=== PATIENT | male | born 1955 | race Caucasian/White ===

== ENCOUNTER → 2023-08-28 | Emergency (ER) | payer OTHER ==
--- NOTE | 2023-08-28 09:11 | ER ---
Nurse's Notes [facility] Name: Vamshi Cobian Age: 68 yrs Sex: Male : 1955 Arrival Date: 08/28/2023 Time: 08:58 Bed IW1 Private MD: Diagnosis: Ganglion, left wrist Presentation: 08/28 09:05 Chief complaint: Lump on inner wrist and tingling sensation in left inner wrist that hb radiates to forearm x 2 weeks. Coronavirus screen: At this time, the client does not indicate any symptoms associated with coronavirus-19. Ebola Screen: No symptoms or risks identified at this time. Initial Sepsis Screen: Does the patient meet any 2 criteria? No. Patient's initial sepsis screen is negative. Does the patient have a suspected source of infection? No. Patient's initial sepsis screen is negative. Risk Assessment: Do you want to hurt yourself or someone else? Patient reports no desire to harm self or others. Onset of symptoms was August 14, 2023. 09:05 Method Of Arrival: Ambulatory hb 09:05 Acuity: MIAH 4 hb Triage Assessment: 09:06 General: Appears in no apparent distress. Behavior is calm, cooperative. Pain: Denies hb pain. Neuro: Level of Consciousness is awake, alert, obeys commands, Oriented to person, place, time, situation. Cardiovascular: Patient's skin is warm and dry. Respiratory: Respiratory effort is even, unlabored, Respiratory pattern is regular, symmetrical. Historical: - Allergies: 09:06 No Known Allergies; hb - Home Meds: 09:06 None [Active]; hb - PMHx: 09:06 None; hb - PSHx: 09:06 None; hb - Immunization history:: Adult Immunizations up to date. - Social history:: Smoking status: Patient denies any tobacco usage or history of. Screenin:07 [facility] ED Fall Risk Assessment (Adult) Score/Fall Risk Level 0 - 2 = Low Risk hb Oriented to surroundings, Maintained a safe environment, Educated pt \T\ family on fall prevention, incl call for assistance when getting out of bed. Abuse screen: Denies threats or abuse. Denies injuries from another. Nutritional screening: No deficits noted. Tuberculosis screening: No symptoms or risk factors identified. Assessment: 09:07 General: Appears in no apparent distress. Behavior is calm, cooperative. Pain: Denies hb pain. Neuro: Level of Consciousness is awake, alert, obeys commands, Oriented to person, place, time, situation. Cardiovascular: Patient's skin is warm and dry. Respiratory: Respiratory effort is even, unlabored, Respiratory pattern is regular, symmetrical. GI: No signs and/or symptoms were reported involving the gastrointestinal system. : No signs and/or symptoms were reported regarding the genitourinary system. EENT: No signs and/or symptoms were reported regarding the EENT system. Derm: Skin is pink, warm \T\ dry. lump in left inner wrist. Musculoskeletal: No signs and/or symptoms reported regarding the musculoskeletal system. Vital Signs: 09:08 BP 129 / 89; Pulse 88; Resp 16; Temp 98.2; Pulse Ox 100% on R/A; Weight 73.48 kg; hb Height 5 ft. 7 in. ; Pain 0/10; 09:08 Body Mass Index 25.37 (73.48 kg, 170.18 cm) hb 09:08 Pain Scale: Adult hb ED Course: 09:02 Patient arrived in ED. rg4 09:03 [facility]ul Smith FNP [facility] 7 09:03 Martínez Simmons MD is Attending Physician. jh7 09:06 Triage completed. hb 09:06 Arm band placed on. hb 09:07 Patient has correct armband on for positive identification. Provided Education on: . hb 09:07 No provider procedures requiring assistance completed. Patient did not have IV access hb during this emergency room visit. 09:17 Rhiannon Greenberg RN is Primary Nurse. hb Administered Medications: No medications were administered Medication: 09:07 VIS not applicable for this client. hb Outcome: 09:11 Discharge ordered by . 7 09:17 Discharged to home ambulatory, hb 09:17 Condition: stable 09:17 Discharge instructions given to patient, Instructed on discharge instructions, follow up and referral plans. Demonstrated understanding of instructions, follow-up care, 09:17 Patient left the ED. hb Signatures: Rhiannon Greenberg RN RN Tegan Fierro rg4 Parul Smith FNP [employer] [facility] Corrections: (The following items were deleted from the chart) 09:08 09:05 Chief complaint: Lump on inner wrist x 2 weeks. hb hb
--- NOTE | 2023-08-28 09:12 | EDPHYS ---
Physician Documentation [facility] Name: Vamshi Cobian Age: 68 yrs Sex: Male : 1955 Arrival Date: 08/28/2023 Time: 08:58 Bed IW1 Private MD: ED Physician Martínez Simmons HPI: 08/28 09:06 This 68 yrs old Male presents to ER via Ambulatory with complaints of Bump On Wrist. jh7 09:06 Onset: The symptoms/episode began/occurred 3 week(s) ago. Associated signs and jh7 symptoms: Pertinent positives: tingling over left digits 1 through 3, Pertinent negatives: abdominal pain, chest pain, vomiting, wheezing. Patient reports hard painless lump on the ventral aspect of the left wrist occurring 3 weeks ago. He reported some tingling on digits 1 through 3 and around the bump and N told him to be evaluated in the ER.. Historical: - Allergies: 09:06 No Known Allergies; hb - Home Meds: 09:06 None [Active]; hb - PMHx: 09:06 None; hb - PSHx: 09:06 None; hb - Immunization history:: Adult Immunizations up to date. - Social history:: Smoking status: Patient denies any tobacco usage or history of. ROS: 09:06 Constitutional: Negative for fever, chills, and weight loss, Eyes: Negative for injury, jh7 pain, redness, and discharge, Neck: Negative for injury, pain, and swelling, Cardiovascular: Negative for chest pain, palpitations, and edema, Respiratory: Negative for shortness of breath, cough, wheezing, and pleuritic chest pain, MS/Extremity: Negative for injury and deformity, 09:06 Skin: Positive for lesions, of the Left wrist, Negative for cellulitis, 09:06 Neuro: Positive for tingling, of the Left wrist, Negative for altered mental status, dizziness, gait disturbance, headache, loss of consciousness, seizure activity, speech changes, syncope, visual changes, weakness, 09:06 All other systems are negative, Exam: 09:06 Constitutional: This is a well developed, well nourished patient who is awake, alert, jh7 and in no acute distress. Head/Face: Normocephalic, atraumatic. Cardiovascular: Regular rate and rhythm with a normal S1 and S2. No gallops, murmurs, or rubs. Normal PMI, no JVD. No pulse deficits. Respiratory: Lungs have equal breath sounds bilaterally, clear to auscultation and percussion. No rales, rhonchi or wheezes noted. No increased work of breathing, no retractions or nasal flaring. Abdomen/GI: Soft, non-tender, with normal bowel sounds. No distension or tympany. No guarding or rebound. No evidence of tenderness throughout. MS/ Extremity: Pulses equal, no cyanosis. Neurovascular intact. Full, normal range of motion. Neuro: Awake and alert, GCS 15, oriented to person, place, time, and situation. Cranial nerves II-XII grossly intact. Motor strength 5/5 in all extremities. Sensory grossly intact. Cerebellar exam normal. Normal gait. 09:06 Skin: 1 x 2 cm ganglion cyst present on the medial aspect of the ventral left wrist. Vital Signs: 09:08 BP 129 / 89; Pulse 88; Resp 16; Temp 98.2; Pulse Ox 100% on R/A; Weight 73.48 kg; hb Height 5 ft. 7 in. ; Pain 0/10; 09:08 Body Mass Index 25.37 (73.48 kg, 170.18 cm) hb 09:08 Pain Scale: Adult hb MDM: 09:03 Patient medically screened. [facility] 09:10 Differential diagnosis: Ganglion cyst, lipoma, abscess, skin mass. Data reviewed: vital [facility] signs, nurses notes. Historians other than the Patient: Spouse/Significant Other: . Counseling: I had a detailed discussion with the patient and/or guardian regarding the historical points, exam findings, and any diagnostic results supporting the discharge/admit diagnosis, the need for outpatient follow up, a inspector watch assembly, to return to the emergency department if symptoms worsen or persist or if there are any questions or concerns that arise at home. Administered Medications: No medications were administered Disposition: 10:16 Co-signature as Attending Physician, Martínez Simmons MD I agree with the assessment and kdr plan of care. Disposition Summary: 08/28/23 09:11 Discharge Ordered Notes: Location: Home [facility] Problem: [facility] Symptoms: are unchanged [facility] Condition: Stable [facility] Diagnosis - Ganglion, left wrist jh7 Followup: [facility] - With: Private Physician - When: 2 - 3 days - Reason: Further diagnostic work-up Discharge Instructions: - Discharge Summary Sheet 7 - Ganglion Cyst jh7 - Ganglion Cyst Removal jh7 - Ganglion Cyst Drainage [facility] Forms: - Medication Reconciliation Form [facility] - Thank You Letter [facility] - Patient Portal Instructions [facility] - Leadership Thank You Letter [facility] Signatures: Martínez Simmons MD MD kdr Baxter, Heather, RN RN Parul Rai FNP FNP [facility]
[2023-08-28 09:36] VITALS: BP 129/89; TEMP 98.2; O2SAT 100
== END ==
LOC: ER 08:58
DX: M67.432 Ganglion, left wrist (principal)
CPT/HCPCS: 99282